=== PATIENT | male | born 1985 | race Caucasian/White ===

== ENCOUNTER 2016-05-26 07:45 | Emergency (ER) | payer SELFPAY ==
[~2016-05-26 07:45] MED LIST: Sodium Chloride 0.9% 1,000 ML BAG ONE
[2016-05-26] MEDS ORDERED: Nitroglycerin 0.4 MG TAB 1 EACH ONE (08:08)
[2016-05-26] MEDS ORDERED: Aspirin 325 MG TAB ONE (08:08)
[2016-05-26 08:14] LABS: Hemoglobin 17.3 g/dL (14.0-18.0); Mean Corpuscular HGB CONC 33.9 g/dL (32.0-36.0); Mean Corpuscular Hemoglobin 29.7 pg (27.0-31.0); Mean Corpuscular Volume 87.4 fL (80.0-94.0); Mean Platelet Volume 8.8 fL (7.4-10.4); Platelet Count 291 thou/uL (130-400); RBC Distribution Width 11.2 % (11.5-14.5); Red Blood Cell (RBC) Count 5.84 mill/uL (4.70-6.10); White Blood Cell (WBC) Count 7.7 thou/uL (4.8-10.8)
[2016-05-26 08:15] LABS: #Basophils 0.1 thou/uL (0.0-0.2); #Eosinphils 0.2 thou/uL (0.0-0.7); #Lymphocytes 2.2 thou/uL (1.20-3.40); #Monocytes 0.5 thou/uL (0.11-0.59); #Neutrophils 4.6 thou/uL (1.40-6.50); %Basophils 1.2 % (0.0-1.0); %Eosinophils 3.2 % (0.0-10.0); %Lymphocytes 28.7 % (21.0-51.0); %Monocytes 6.8 % (0.0-10.0); %Neutrophils 60.2 % (42.0-75.0)
[2016-05-26 08:18] LABS: PTT 28.8 SEC (22.9-36.1); Prothrombin Time 13.4 SEC (12.0-14.7)
[2016-05-26 08:35] LABS: CKMB 0.6 ng/mL (0-6.6); Troponin I 0.013 ng/mL (< 0.028)
--- NOTE | 2016-05-26 08:38 | RAD ---
SINGLE VIEW CHEST INDICATIONS: Chest pain. COMPARISON: No comparisons are available. IMPRESSION: No acute cardiopulmonary abnormality. COMMENTS: The lungs are clear. The cardiomediastinal silhouette is within normal limits. No acute osseous abnormality is evident. POS: [facility]
[2016-05-26 08:50] LABS: ALT (SGPT) 27 U/L (0-55); AST (SGOT) 17 U/L (5-34); Albumin 4.6 g/dL (3.5-5.0); Alkaline Phosphatase 78 U/L (40-150); Anion Gap 15 mmol/L (10-20); BUN (Urea Nitrogen) 13 mg/dL (8.9-20.6); Bilirubin, Total 0.7 mg/dL (0.2-1.2); CK (CPK) 85 U/L (30-200); Calc. Creatinine Clearance 0 mL/min (70-130); Calcium 8.9 mg/dL (7.8-10.44); Carbon Dioxide 24 mmol/L (22-29); Chloride 103 mmol/L (98-107); Estimated GFR-MDRD 86; Globulin 2.6 g/dL (2.4-3.5); Glucose 102 mg/dL (70-105); Magnesium 2.1 mg/dL (1.6-2.6); Protein, Total 7.2 g/dL (6.0-8.3); Sodium 138 mmol/L (136-145)
== END 2016-05-26 10:05 | disposition home or self-care (01) ==
LOC: MADERS 07:45
DX: R07.2 Precordial pain (principal)
CPT/HCPCS: 71010; 80053; 82553; 83735; 83880; 84484; 85025; 85610; 85730; 93005; 94760; 96360; 96361; J7050

== ENCOUNTER 2016-06-21 12:15 | Emergency (ER) | payer SELFPAY ==
[2016-06-21] MEDS ORDERED: Dexamethasone 4 MG TAB ONE (12:36)
[2016-06-21] MEDS ORDERED: Cyclobenzaprine 10 MG TAB ONE (12:36)
== END 2016-06-21 12:45 | disposition home or self-care (01) ==
LOC: MADERS 12:15
DX: M62.838 Other muscle spasm (principal); Z72.0 Tobacco use; Z79.82 Long term (current) use of aspirin; Z79.899 Other long term (current) drug therapy
CPT/HCPCS: 99283; J8540

== ENCOUNTER 2016-12-07 10:14 | Emergency (ER) | payer SELFPAY | END 2016-12-07 11:25 | disposition home or self-care (01) | LOC: MADERS 10:14 | DX: K02.9 Dental caries, unspecified (principal); K03.81 Cracked tooth; F17.210 Nicotine dependence, cigarettes, uncomplicated | CPT/HCPCS: 99282 ==

== ENCOUNTER 2017-05-17 17:19 | Emergency (ER) | payer SELFPAY ==
[2017-05-17] MEDS ORDERED: Lidocaine Viscous Sol 2% 15 ml UD Cup ONE (17:47)
[2017-05-17] MEDS ORDERED: Clindamycin 150 MG CAP ONE (17:47)
[2017-05-17] MEDS ORDERED: Ibuprofen 800 MG TAB ONE (17:47)
[2017-05-17] MEDS ORDERED: HYDROcodone/Acetaminophen 5/325 mg Tablet ONE (17:47)
== END 2017-05-17 18:30 | disposition home or self-care (01) ==
LOC: MADERS 17:19
DX: K02.9 Dental caries, unspecified (principal); K04.7 Periapical abscess without sinus; F17.210 Nicotine dependence, cigarettes, uncomplicated
CPT/HCPCS: 99282

== ENCOUNTER 2018-02-18 17:45 | Emergency (ER) | payer SELFPAY ==
[2018-02-18] MEDS ORDERED: HYDROcodone/Acetaminophen 5/325 mg Tablet ONE (18:21)
[2018-02-18 18:22] LABS: Bilirubin Negative (Negative); Blood, Urine Moderate (Negative); Clarity Clear (Clear); Glucose, Urine (Dipstick) Negative (Negative); Leukocyte Negative (Negative); Nitrite Negative (Negative); Protein, Urine (Dipstick) Negative (Neg-Trace); Specific Gravity, Urine 1.034 (1.002-1.036); Urobilinogen 0.2 mg/dL (0.2-1.0)
[2018-02-18] MEDS ORDERED: Ibuprofen 800 MG TAB ONE (18:22)
[2018-02-18 18:24] LABS: Bacteria/HPF Rare-Few HPF (None Seen); Squamous Epithelial 0-3 HPF (0-3); WBC/HPF 0-3 HPF (0-3)
--- NOTE | 2018-02-18 19:40 | CT ---
CT ABDOMEN AND PELVIS: 02/18/2018 HISTORY: Groin pain. COMPARISON: None. TECHNIQUE: Axial CT imaging at 5 mm intervals, from the lung bases through the pubic symphysis, without contrast . Coronal reformatted imaging obtained, FINDINGS: The lack of contrast medial limits assessment of the viscera, bowel, and vascular structures, and for lymphadenopathy. Two stable, tiny, nodular densities are noted in the inferior left upper lobe. The lung bases demons trate no acute findings. No free intraperitoneal air. The liver, spleen, gallbladder, pancreas, and adrenal glands appear unremarkable. There is a punctate nonobstructing stone in the upper pole of the left kidney, posteriorly. No nephr olithiasis is seen on the right. There is a calcification noted on coronal image 74 and axial image 75, which measures 3-4 mm and is s een along the posterior aspect of the urinary bladder, just to the left of midline. This may represe nt a recently passed stone, which is now within the urinary bladder. There is no evidence for hydron ephrosis or hydroureter on either side. Limited assessment of the bowel demonstrates no evidence for inflammatory change or obstruction. The appendix appears grossly unremarkable. Review of the osseous structures demonstrates no acute findings. IMPRESSION: A 3-4 mm calcification in the region of the urinary bladder may represent a recently passed stone. N o evidence for hydronephrosis or hydroureter is seen on either side. There is a punctate, 2-3 mm sto ne seen within the left kidney. POS: [facility]
== END 2018-02-18 19:33 | disposition short-term general hospital (02) ==
LOC: MADERS 17:45
DX: N20.1 Calculus of ureter (principal); N50.812 Left testicular pain; I20.9 Angina pectoris, unspecified; F17.210 Nicotine dependence, cigarettes, uncomplicated
CPT/HCPCS: 74176; 81003; 81015

== ENCOUNTER 2018-04-13 19:05 | Emergency (ER) | payer SELFPAY ==
[2018-04-13] MEDS ORDERED: Ketorolac Tromethamine 30 MG/ML VIAL ONE (19:37)
[2018-04-13 19:55] LABS: Bilirubin Negative (Negative); Blood, Urine Negative (Negative); Clarity Clear (Clear); Glucose, Urine (Dipstick) Negative (Negative); Leukocyte Negative (Negative); Nitrite Negative (Negative); Protein, Urine (Dipstick) Negative (Neg-Trace); Urobilinogen 0.2 mg/dL (0.2-1.0); pH, Urine 5.5 (5.0-9.0)
[2018-04-13 19:59] LABS: Specific Gravity, Urine 1.029 (1.002-1.036)
[2018-04-17 02:54] LABS: Chlamydia by PCR Not Detected (NotDetected); GC by PCR Not Detected (NotDetected)
== END 2018-04-13 20:00 | disposition short-term general hospital (02) ==
LOC: MADERS 19:05
DX: N50.812 Left testicular pain (principal); F17.210 Nicotine dependence, cigarettes, uncomplicated
CPT/HCPCS: 81003; 87491; 87591; 96372; J1885

== ENCOUNTER 2019-08-26 14:00 | Emergency (ER) | payer SELFPAY | END 2019-08-26 14:44 | disposition home or self-care (01) | LOC: MADERS 14:00 | DX: K04.7 Periapical abscess without sinus (principal); I10 Essential (primary) hypertension; F17.210 Nicotine dependence, cigarettes, uncomplicated | CPT/HCPCS: 99282 ==